=== PATIENT | female | born 1970 | race Two or more races ===

== ENCOUNTER 2018-10-12 10:41 | Inpatient (IN) | payer OTHER ==
[~2018-10-12] VITALS: Ht 157.5 cm; Wt 81.6 kg
[2018-10-12 10:42] VITALS: BP 147/121
[2018-10-12] MEDS ORDERED: Sodium Chloride 500ML 500 ML IV ONE (11:02)
--- NOTE | 2018-10-12 11:14 | Emergency Room Report ---
History of Present Illness General Chief Complaint: Abdominal Pain Source: Patient, EMS Present Illness HPI Patient presents in moderate discomfort left upper and mid abdominal pain Ongoing for the past 3 days Patient reports increased nausea denies any vomiting or diarrhea denies any pain like this before Denies any chest pain or shortness of breath Denies any fevers pain is 10 out of 10 with radiation as noted Denies any change with position or exertion Denies any focal weakness denies any trauma Allergies: Coded Allergies: No Known Allergies (Unverified , 10/12/18) Patient History Past Medical History: see triage record Pertinent Family History: none Reviewed Nursing Documentation: PMH: Agreed; PSxH: Agreed Nursing Documentation-PMH Past Medical History: No History, Except For Hx Cardiac Problems: Yes - CHF Hx Hypertension: Yes Review of Systems All Other Systems: negative except mentioned in HPI Physical Exam Vital Signs Date Time Temp Pulse Resp B/P (MAP) Pulse Ox O2 Delivery O2 Flow Rate FiO2 10/12/18 10:40 Room Air 10/12/18 10:42 98.6 96 16 147/121 100 Sp02 EP Interpretation: reviewed, normal General Appearance: moderate distress - In acute pain Head: normocephalic, atraumatic Eyes: bilateral eye PERRL, bilateral eye EOMI ENT: hearing grossly normal, normal pharynx, TMs + canals normal, uvula midline , other - Poor dentition Neck: full range of motion, supple, no meningismus, no bony tend Respiratory: lungs clear, normal breath sounds, no rhonchi, no respiratory distress, no retraction, no accessory muscle use Cardiovascular #1: normal peripheral pulses, regular rate, rhythm, no edema, no gallop, no JVD, no murmur Gastrointestinal: normal bowel sounds, soft, non-distended, no pulsatile mass, no rebound, other - Patient's abdomen remains soft however subjectively points to the left upper quadrant and mid abdominal area Genitourinary: no CVA tenderness Musculoskeletal: normal inspection Neurologic: oriented x3, responsive, radiation engineer III-XII nml as tested, motor strength/ tone normal, sensory intact Psychiatric: mood/affect normal Skin: normal color, no rash, warm/dry, palpation normal Lymphatic: normal inspection, no adenopathy Medical Decision Making Diagnostic Impression: Primary Impression: Colitis Additional Impressions: Abdominal pain Amphetamine abuse ER Course With the history exam and presentation, multiple differentials considered, including but not limited to appendicitis, gastritis, cholecystitis, diverticulitis Patient also appears somewhat agitated Did question regarding drug abuse and initially the patient denied any abuse Toxic screen does reveal amphetamine positive It does somewhat correlate with the patient's demeanor Given the continued pain however and the patient general discomfort CT imaging was also obtained which shows some evidence of colitis Patient initiated on IV antibiotics for that she has a poor outpatient disposition and requires further inpatient care, Labs Test 10/12/18 11:22 10/12/18 16:35 White Blood Count 6.9 K/UL (4.8-10.8) Red Blood Count 5.30 M/UL (4.20-5.40) Hemoglobin 15.0 G/DL (12.0-16.0) Hematocrit 48.0 % (37.0-47.0) Mean Corpuscular Volume 90 FL (80-99) Mean Corpuscular Hemoglobin 28.3 PG (27.0-31.0) Mean Corpuscular Hemoglobin Concent 31.3 G/DL (32.0-36.0) Red Cell Distribution Width 16.2 % (11.6-14.8) Platelet Count 237 K/UL (150-450) Mean Platelet Volume 7.9 FL (6.5-10.1) Neutrophils (%) (Auto) 56.6 % (45.0-75.0) Lymphocytes (%) (Auto) 27.6 % (20.0-45.0) Monocytes (%) (Auto) 13.3 % (1.0-10.0) Eosinophils (%) (Auto) 0.4 % (0.0-3.0) Basophils (%) (Auto) 2.1 % (0.0-2.0) Sodium Level 135 MMOL/L (136-145) Potassium Level 4.4 MMOL/L (3.5-5.1) Chloride Level 101 MMOL/L (98-107) Carbon Dioxide Level 24 MMOL/L (21-32) Anion Gap 10 mmol/L (5-15) Blood Urea Nitrogen 12 mg/dL (7-18) Creatinine 0.9 MG/DL (0.55-1.30) Estimat Glomerular Filtration Rate > 60 mL/min (>60) Glucose Level 143 MG/DL (74-106) Calcium Level 9.1 MG/DL (8.5-10.1) Total Bilirubin 2.3 MG/DL (0.2-1.0) Direct Bilirubin 1.2 MG/DL (0.0-0.3) Aspartate Amino Transf (AST/SGOT) 83 U/L (15-37) Alanine Aminotransferase (ALT/SGPT) 138 U/L (12-78) Alkaline Phosphatase 410 U/L (46-116) Total Creatine Kinase 156 U/L (26-308) Creatine Kinase MB 2.1 NG/ML (0.0-3.6) Creatine Kinase MB Relative Index 1.3 Troponin I 0.054 ng/mL (0.000-0.056) Total Protein 9.2 G/DL (6.4-8.2) Albumin 3.2 G/DL (3.4-5.0) Globulin 6.0 g/dL Albumin/Globulin Ratio 0.5 (1.0-2.7) Lipase 131 U/L (73-393) Urine Color Brown Urine Appearance Clear Urine pH 5 (4.5-8.0) Urine Specific [place] 1.020 (1.005-1.035) Urine Protein 4+ (NEGATIVE) Urine Glucose (UA) Negative (NEGATIVE) Urine Ketones 1+ (NEGATIVE) Urine Blood 1+ (NEGATIVE) Urine Nitrite Negative (NEGATIVE) Urine Bilirubin 1+ (NEGATIVE) Urine Ictotest Negative (NEGATIVE) Urine Urobilinogen 4 MG/DL (0.0-1.0) Urine Leukocyte Esterase 1+ (NEGATIVE) Urine RBC 0-2 /HPF (0 - 2) Urine WBC 5-10 /HPF (0 - 2) Urine Squamous Epithelial Cells Occasional /LPF Urine Bacteria Occasional /HPF (NONE) Urine Hyaline Casts 0-2 /LPF (NONE) Urine Fine Granular Casts 2-4 /LPF (NONE) Urine Opiates Screen Negative (NEGATIVE) Urine Barbiturates Screen Negative (NEGATIVE) Phencyclidine (PCP) Screen Negative (NEGATIVE) Urine Amphetamines Screen Positive (NEGATIVE) Urine Benzodiazepines Screen Negative (NEGATIVE) Urine Cocaine Screen Negative (NEGATIVE) Urine Marijuana (THC) Screen Negative (NEGATIVE) Rhythm Strip Diag. Results EP Interpretation: yes Rate: 90 Rhythm: NSR, no PVC's, no ectopy CT/MRI/US Diagnostic Results CT/MRI/US Diagnostic Results : Impression CT abdomen pelvisImpression: Limited assessment of the GI tract, due to lack of enteric contrast administration Possible wall thickening of ascending colon, inadequately demonstrated but could indicate colitis Anasarca, with diffuse edema of the subcutaneous, abdominal and pelvic fat, small amount of ascites Cardiomegaly Limited assessment of the solid organs, due to poor contrast bolus related to infiltration of the IV. Surgically absent gallbladder Incidental finding of degenerative lumbosacral spondylosis Last Vital Signs Date Time Temp Pulse Resp B/P (MAP) Pulse Ox O2 Delivery O2 Flow Rate FiO2 10/12/18 10:42 96 16 Room Air 10/12/18 10:42 98.6 147/121 100 Status: improved Disposition: ADMITTED INPATIENT Condition: Serious Desi Conroy DO Oct 12, 2018 11:14
[2018-10-12] MEDS ORDERED: Isovue-300 100ml vial INJ PRN (11:15)
[2018-10-12 11:31] LABS: BASOPHILS % (AUTO) 2.1 % (0.0-2.0); EOSINOPHILS % (AUTO) 0.4 % (0.0-3.0); LYMPHOCYTES % (AUTO) 27.6 % (20.0-45.0); MEAN CORPUSCULAR VOLUME 90 FL (80-99); MONOCYTES % (AUTO) 13.3 % (1.0-10.0); NEUTROPHILS % (AUTO) 56.6 % (45.0-75.0); PLATELET COUNT 237 K/UL (150-450); RED CELL DISTRIBUTION WIDTH 16.2 % (11.6-14.8); WHITE BLOOD COUNT 6.9 K/UL (4.8-10.8)
[2018-10-12 11:39] LABS: ANION GAP 10 mmol/L (5-15); BLOOD UREA NITROGEN 12 mg/dL (7-18); CALCIUM 9.1 MG/DL (8.5-10.1); CARBON DIOXIDE 24 MMOL/L (21-32); CHLORIDE 101 MMOL/L (98-107); CREATININE 0.9 MG/DL (0.55-1.30); POTASSIUM 4.4 MMOL/L (3.5-5.1); SODIUM 135 MMOL/L (136-145)
[2018-10-12 11:42] VITALS: BP 138/106
[2018-10-12 11:52] LABS: ALANINE AMINOTRANSFERASE 138 U/L (12-78); ALBUMIN 3.2 G/DL (3.4-5.0); ALBUMIN/GLOBULIN RATIO 0.5 (1.0-2.7); ALKALINE PHOSPHATASE 410 U/L (46-116); ASPARTATE AMINO TRANSFERASE 83 U/L (15-37); BILIRUBIN,TOTAL 2.3 MG/DL (0.2-1.0); CKMB 2.1 NG/ML (0.0-3.6); CREATINE KINASE 156 U/L (26-308)
[2018-10-12 11:54] LABS: BILIRUBIN,DIRECT 1.2 MG/DL (0.0-0.3)
[2018-10-12 12:42] VITALS: BP 147/97
--- NOTE | 2018-10-12 13:12 | Diagnostic Imaging Report ---
Clinical Indication: Left upper and mid abdominal pain Technique: No oral contrast utilized, per emergency room physician request IV administration nonionic contrast. IV infiltrated after only 30 mL injected. Venous phase spiral acquisition obtained through the abdomen and pelvis. Multiplanar reconstructions were generated. Total dose length product 1005.52 mGycm. CTDIvol(s) 19.51 mGy. Dose reduction achieved using automated exposure control Comparison: none Findings: Dilation of the GI tract is limited due to lack of enteric contrast administration. The appendix is normal. There may be wall thickening of the ascending colon, although this is inadequately demonstrated. No evidence of diverticulosis or diverticulitis. There is a small amount of free intraperitoneal fluid. No small bowel distention. The distal esophagus, stomach, duodenum are unremarkable. No free intraperitoneal gas. No loculated fluid collections. Suboptimal contrast bolus limits assessment of the solid organs. The liver is grossly unremarkable. The gallbladder is surgically absent. No biliary ductal dilatation. The pancreas, spleen, adrenals, kidneys are unremarkable. No retroperitoneal or mesenteric mass or adenopathy. No pelvic mass or adenopathy. The uterus and ovaries are unremarkable. The included lower chest demonstrates marked cardiomegaly. There is a small amount of pericardial fluid. The included lung bases are clear. There is diffuse anasarca, with edema of the subcutaneous, mesenteric, retroperitoneal fat. The bones are unremarkable sub for degenerative changes of the lumbosacral junction and slight alignment abnormality of L5 on S1 Impression: Limited assessment of the GI tract, due to lack of enteric contrast administration Possible wall thickening of ascending colon, inadequately demonstrated but could indicate colitis Anasarca, with diffuse edema of the subcutaneous, abdominal and pelvic fat, small amount of ascites Cardiomegaly Limited assessment of the solid organs, due to poor contrast bolus related to infiltration of the IV. Surgically absent gallbladder Incidental finding of degenerative lumbosacral spondylosis The CT scanner at [facility] is accredited by the [employer] and the scans are performed using protocols designed to limit radiation exposure to as low as reasonably achievable to attain images of sufficient resolution adequate for diagnostic evaluation.
[2018-10-12 14:42] VITALS: BP 144/102
[2018-10-12] MEDS ORDERED: Ketorolac 30mg Inj IV ONE (14:45)
[2018-10-12] MEDS ORDERED: LORazepam Inj 2mg/ml 1ml IV ONE (14:45)
[2018-10-12 16:47] LABS: APPEARANCE,URINE CLEAR; BILIRUBIN, URINE 1+ (NEGATIVE); COLOR,URINE BROWN; GLUCOSE, URINE (UA) NEGATIVE (NEGATIVE); KETONES,URINE 1+ (NEGATIVE); LEUKOCYTE ESTERASE ,URINE 1+ (NEGATIVE); NITRITE,URINE NEGATIVE (NEGATIVE); PH,URINE 5 (4.5-8.0); PROTEIN,URINE 4+ (NEGATIVE); UROBILINOGEN,URINE 4 MG/DL (0.0-1.0)
[2018-10-12 20:00] VITALS: BP 164/114
[2018-10-12 21:33] VITALS: BP 159/99
[2018-10-12] MEDS ORDERED: BUMEX0.5 MG ORAL (22:02)
[2018-10-12] MEDS ORDERED: ASPIR 8181 MG ORAL (23:13)
[2018-10-12] MEDS ORDERED: DOCUSATE SODIU100 M2 ORAL (23:13)
[2018-10-12] MEDS ORDERED: LISINOPRIL5 MG ORAL (23:13)
[2018-10-12] MEDS ORDERED: POTASSIUM 25 M25 ME1 PO (23:13)
[2018-10-12] MEDS ORDERED: COREG3.125 MG ORAL (23:13)
[2018-10-12] MEDS ORDERED: BUMEX1 MG ORAL (23:13)
[2018-10-12] MEDS ORDERED: VENTOLIN HFA18 GM INH (23:15)
[2018-10-12] MEDS ORDERED: MGO400 MG PO (23:15)
[2018-10-13] VITALS: BP 184/120
[2018-10-13 03:50] VITALS: BP 154/96
[2018-10-13] MEDS: HydrALAZINE 50mg tab ORAL SCH ×3 (06:11→20:53)
[2018-10-13 07:31] LABS: ANION GAP 6 mmol/L (5-15); BLOOD UREA NITROGEN 18 mg/dL (7-18); CALCIUM 8.4 MG/DL (8.5-10.1); CARBON DIOXIDE 26 MMOL/L (21-32); CHLORIDE 104 MMOL/L (98-107); POTASSIUM 3.7 MMOL/L (3.5-5.1); SODIUM 136 MMOL/L (136-145)
[2018-10-13 07:32] LABS: BASOPHILS % (AUTO) 1.8 % (0.0-2.0); EOSINOPHILS % (AUTO) 1.8 % (0.0-3.0); HEMATOCRIT 39.3 % (37.0-47.0); HEMOGLOBIN 12.8 G/DL (12.0-16.0); LYMPHOCYTES % (AUTO) 22.1 % (20.0-45.0); MEAN CORPUSCULAR VOLUME 89 FL (80-99); MONOCYTES % (AUTO) 18.1 % (1.0-10.0); NEUTROPHILS % (AUTO) 56.3 % (45.0-75.0); PLATELET COUNT 187 K/UL (150-450); RED CELL DISTRIBUTION WIDTH 15.6 % (11.6-14.8); WHITE BLOOD COUNT 5.2 K/UL (4.8-10.8)
[2018-10-13] MEDS: Heparin 5000 units/ml inj SUBQ SCH ×2 (08:48→20:54)
--- NOTE | 2018-10-13 08:50 | Diagnostic Imaging Report ---
Indication: Shortness of breath Technique: One view of the chest Comparison: none Findings: The heart is markedly enlarged. There is equivocal minimal interstitial congestion and equivocal slight blunting of left costophrenic sulcus.. Impression: Marked cardiomegaly Equivocal minimal residual congestion and possible small left pleural effusion This agrees with the preliminary interpretation provided overnight by [facility] teleradiology service.
[2018-10-13 09:00] VITALS: BP 149/88
[2018-10-13] MEDS ORDERED: Norco 5mg/325mg tab ORAL PRN (09:56)
[2018-10-13] MEDS: HYDROcodone/Acetamin 10/325 tab ORAL PRN (10:00)
[2018-10-13 12:00] VITALS: BP 116/82
[2018-10-13 13:07] LABS: ALANINE AMINOTRANSFERASE 149 U/L (12-78); ALBUMIN 2.5 G/DL (3.4-5.0); ALKALINE PHOSPHATASE 338 U/L (46-116); ASPARTATE AMINO TRANSFERASE 140 U/L (15-37); BILIRUBIN,DIRECT 0.9 MG/DL (0.0-0.3); BILIRUBIN,TOTAL 1.6 MG/DL (0.2-1.0)
[2018-10-13] MEDS: Levofloxacin 500mg tab ORAL SCH (14:37)
[2018-10-13 16:00] VITALS: BP 155/92
--- NOTE | 2018-10-13 17:45 | History and Physical Report ---
DATE OF ADMISSION: 10/12/2018 REASON FOR ADMISSION: Abdominal pain. HISTORY: This is a 48-year-old female who presents with abdominal pain and also some shortness of breath. The patient has nausea. Denies chest pain. The patient denies any fevers. The patient's care discussed and reviewed. The patient does have history of anasarca, history of CHF, on diuretics. PAST MEDICAL HISTORY: CHF, hypertension. MEDICATIONS: Reviewed. ALLERGIES: Reviewed. PHYSICAL EXAMINATION: GENERAL: A well-developed female with some noted edema. VITAL SIGNS: Blood pressure 156/105, pulse 97, temperature 96, respiratory rate 21, O2 saturation 97%. HEENT: Negative. NECK: Supple. LUNGS: With moderate breath sounds. Some crackles. CARDIAC: S1 and S2. Regular rate and rhythm. ABDOMEN: Slightly tender diffusely. EXTREMITIES: No cyanosis or clubbing. There is noted edema. LABORATORY DATA: Reviewed. CBC essentially normal. Chemistries essentially normal. Troponin 0.054. Albumin 3.2. IMPRESSION: 1. Evidence of anasarca. 2. Elevated liver enzymes, possible hepatic congestion. 3. Evidence of abdominal pain, possible colitis. 4. Mild protein-calorie malnutrition. RECOMMENDATIONS: Supportive care. Discontinue IV hydration. Empiric antibiotics to consider pending re-evaluation. Diuresis with noted anasarca. Blood pressure support. Pain control. GI evaluation. ID evaluation and we will discharge once improved and stable. Momo Thomas M.D. DR: Veronika JOB#: [id number] CC:
[2018-10-13 20:00] VITALS: BP 132/97
--- NOTE | 2018-10-13 21:30 | Consultation ---
DATE OF CONSULTATION: 10/13/2018 INFECTIOUS DISEASE CONSULT: This consult is for coverage of Dr. Salinas. CONSULTING PHYSICIAN: Dino Martinez M.D. PRIMARY ATTENDING: Momo Thomas M.D. REASON FOR CONSULT: Colitis. HISTORY OF PRESENT ILLNESS: The patient is a 48-year-old female admitted yesterday complaining of abdominal pain in the left side. The patient has these symptoms for 3 or 4 days associated with constipation. No fever. At the time of admission, had elevated bilirubin and transaminase level. PAST MEDICAL HISTORY: This patient has CHF and hypertension. ALLERGIES: No known drug allergies. MEDICATIONS: [place], heparin, hydralazine, Flagyl, Zofran, and clonidine. SOCIAL HISTORY: She lives in a trailer, single. Denies alcohol, drug abuse, or smoking. REVIEW OF SYSTEMS: No fever. No chills. No coughing. Abdominal pain as mentioned. The patient is drowsy and sedated and not a good historian. PHYSICAL EXAMINATION: VITAL SIGNS: Temperature 98.3, pulse 81, and blood pressure 116/82. GENERAL APPEARANCE: Slightly overweight, obese. HEAD AND NECK: [place] conjunctivae. HEART: S1-S2 regular. LUNGS: Clear. ABDOMEN: Soft. Mildly tender in the left side. EXTREMITIES: Have no edema. LABORATORY AND DIAGNOSTIC DATA: Sodium 136, potassium 3.7, chloride 104, bicarb 26, BUN 18, creatinine 1, and glucose is 117. Bilirubin is 1.6 coming down from 2.3, AST 148, ALT 149, and alkaline phosphatase is 338. Albumin is 2.5. Urine toxicology was positive for amphetamine. UA showed wbc of 5 to 10. The patient had a CT scan of the abdomen and pelvis, possible small thickening of ascending colon, maybe colitis, anasarca, cardiomegaly, surgically absent gallbladder, degenerative lumbosacral spondylosis. IMPRESSION: Diverticulitis of ascending colon, but the patient does not seem septic. Status post cholecystectomy. Has elevated transaminase and bilirubin. Has history of CHF, but was not on any medication before. Has hypertension and amphetamine abuse. RECOMMENDATION: We will continue with Flagyl. We will add Levaquin. Follow up hepatitis panel. At the end of my exam, I thank Dr. Thomas for involving me in the care of this patient. Dino Martinez M.D. DR: MCKENZIE JOB#: [id number] CC:
--- NOTE | 2018-10-13 23:21 | General Progress Note ---
Assessment/Plan Assessment/Plan GI CONSULT Assessment - Abnormal LFT, ? etiology - ? passive congestion - ? viral / hepatitis - ? Vascular / portal vein thrombosis - ? other - Ascending colon wall thickening, ? due to under-distention - (L) sided abdominal pain , ? etiology Recommendations - check abd U/S with doppler of vessels - check hepatitis serologies - follow LFT - check stool cultures - Check OB - check hepaitis serologies - follow LFT - po diet as tolerated Subjective Allergies: Coded Allergies: No Known Allergies (Unverified , 10/12/18) Objective Last 24 Hour Vital Signs Date Time Temp Pulse Resp B/P (MAP) Pulse Ox O2 Delivery O2 Flow Rate FiO2 10/13/18 21:34 Room Air 10/13/18 20:53 132/97 10/13/18 20:00 97.5 92 20 132/97 (109) 95 10/13/18 16:00 96.7 98 20 155/92 (113) 95 10/13/18 14:42 155/125 10/13/18 12:00 98.3 81 20 116/82 (93) 98 10/13/18 10:30 98.3 10/13/18 09:00 98.5 86 19 149/88 (108) 97 10/13/18 09:00 Room Air 10/13/18 09:00 Room Air 10/13/18 06:11 156/105 10/13/18 03:50 97 154/96 (115) 10/13/18 01:19 180/120 10/13/18 00:00 96.0 91 20 184/120 (141) 96 Intake and Output 10/12/18 10/13/18 19:00 07:00 Intake Total 480 ml Balance 480 ml Intake Oral 480 ml # Voids 1 1 Laboratory Tests 10/13/18 06:23: White Blood Count 5.2, Red Blood Count 4.40, Hemoglobin 12.8, Hematocrit 39.3, Mean Corpuscular Volume 89, Mean Corpuscular Hemoglobin 29.2, Mean Corpuscular Hemoglobin Concent 32.7, Red Cell Distribution Width 15.6H, Platelet Count 187, Mean Platelet Volume 8.2, Neutrophils (%) (Auto) 56.3, Lymphocytes (%) (Auto) 22.1, Monocytes (%) (Auto) 18.1H, Eosinophils (%) (Auto) 1.8, Basophils (%) ( Auto) 1.8, Sodium Level 136, Potassium Level 3.7, Chloride Level 104, Carbon Dioxide Level 26, Anion Gap 6, Blood Urea Nitrogen 18, Creatinine 1.0, Estimat Glomerular Filtration Rate 58.7, Glucose Level 117H, Calcium Level 8.4L, Total Bilirubin 1.6H, Direct Bilirubin 0.9H, Aspartate Amino Transf (AST/SGOT) 140H, Alanine Aminotransferase (ALT/SGPT) 149H, Alkaline Phosphatase 338H, Total Protein 7.4, Albumin 2.5L Height (Feet): 5 Height (Inches): 2.00 Weight (Pounds): 180 Lorenza Thompson MD Oct 13, 2018 23:21
[2018-10-13] MEDS: Bumetanide 2.5mg/10ml Inj IVP SCH (23:22)
[2018-10-14] VITALS: BP 139/95
[2018-10-14] MEDS: HYDROcodone/Acetamin 10/325 tab ORAL PRN ×3 (01:38→17:03)
[2018-10-14 04:00] VITALS: BP 120/78
[2018-10-14] MEDS: HydrALAZINE 50mg tab ORAL SCH ×2 (05:31→13:59)
[2018-10-14 07:40] LABS: ALANINE AMINOTRANSFERASE 124 U/L (12-78); ALBUMIN 2.4 G/DL (3.4-5.0); ALBUMIN/GLOBULIN RATIO 0.5 (1.0-2.7); ALKALINE PHOSPHATASE 325 U/L (46-116); ANION GAP 6 mmol/L (5-15); ASPARTATE AMINO TRANSFERASE 102 U/L (15-37); BILIRUBIN,TOTAL 1.2 MG/DL (0.2-1.0); BLOOD UREA NITROGEN 16 mg/dL (7-18); CALCIUM 8.3 MG/DL (8.5-10.1); CARBON DIOXIDE 28 MMOL/L (21-32); CHLORIDE 104 MMOL/L (98-107); CREATININE 0.9 MG/DL (0.55-1.30); POTASSIUM 3.6 MMOL/L (3.5-5.1); SODIUM 138 MMOL/L (136-145)
[2018-10-14 07:41] LABS: BILIRUBIN,DIRECT 0.7 MG/DL (0.0-0.3)
[2018-10-14 08:26] VITALS: BP 133/85
--- NOTE | 2018-10-14 09:29 | General Progress Note ---
Assessment/Plan Assessment/Plan IMPRESSION: 1. Evidence of anasarca. 2. Elevated liver enzymes, possible hepatic congestion. 3. Evidence of abdominal pain, possible colitis. 4. Mild protein-calorie malnutrition. PLAN care noted gi clearance alejoe advance diet impression, plan, and exam edited and reviewed in detail care discussed with RN Subjective Allergies: Coded Allergies: No Known Allergies (Unverified , 10/12/18) Subjective overall feels better Objective Last 24 Hour Vital Signs Date Time Temp Pulse Resp B/P (MAP) Pulse Ox O2 Delivery O2 Flow Rate FiO2 10/14/18 08:26 98.9 77 19 133/85 (101) 97 10/14/18 05:31 120/78 10/14/18 04:00 98.1 86 20 120/78 (92) 97 10/14/18 02:08 97.5 10/14/18 00:00 98.0 90 20 139/95 (110) 98 10/13/18 21:34 Room Air 10/13/18 20:53 132/97 10/13/18 20:00 97.5 92 20 132/97 (109) 95 10/13/18 16:00 96.7 98 20 155/92 (113) 95 10/13/18 14:42 155/125 10/13/18 12:00 98.3 81 20 116/82 (93) 98 Intake and Output 10/13/18 10/14/18 18:59 06:59 Intake Total 400 ml Balance 400 ml Intake Oral 200 ml IV Total 200 ml # Voids 1 Laboratory Tests 10/14/18 04:45: Sodium Level 138, Potassium Level 3.6, Chloride Level 104, Carbon Dioxide Level 28, Anion Gap 6, Blood Urea Nitrogen 16, Creatinine 0.9, Estimat Glomerular Filtration Rate > 60, Glucose Level 135H, Calcium Level 8.3L, Total Bilirubin 1.2H, Direct Bilirubin 0.7H, Aspartate Amino Transf (AST/SGOT) 102H, Alanine Aminotransferase (ALT/SGPT) 124H, Alkaline Phosphatase 325H, Total Protein 7.1, Albumin 2.4L, Globulin 4.7, Albumin/Globulin Ratio 0.5L, Hepatitis A IgM Antibody [Pending], Hepatitis B Surface Antigen [Pending], Hepatitis B Core IgM Antibody [Pending], Hepatitis C Antibody [Pending] Height (Feet): 5 Height (Inches): 2.00 Weight (Pounds): 180 Objective GENERAL: A well-developed female with some noted edema. HEENT: Negative. NECK: Supple. LUNGS: With moderate breath sounds. Some crackles. CARDIAC: S1 and S2. Regular rate and rhythm. ABDOMEN: Slightly tender diffusely. EXTREMITIES: No cyanosis or clubbing. There is noted edema. Momo Thomas MD Oct 14, 2018 09:28
[2018-10-14] MEDS: Bumetanide 2.5mg/10ml Inj IVP SCH (10:04)
[2018-10-14] MEDS: Levofloxacin 500mg tab ORAL SCH (10:04)
[2018-10-14] MEDS: Heparin 5000 units/ml inj SUBQ SCH (10:05)
--- NOTE | 2018-10-14 11:06 | Infectious Diseases Prog Note ---
Assessment/Plan Assessment/Plan antibiotics : levoquin, flagyl A 1. colitis 2. increased LFT 3. CHF 4. hypertension P 1. continue levoquin, flagyl 2. stool for c.diff 3. CMV PCR 4. will follow up cultures Subjective Constitutional: Denies: fever, chills Respiratory: Reports: dry cough; Denies: shortness of breath Gastrointestinal/Abdominal: Denies: nausea, vomiting, diarrhea Musculoskeletal: Reports: pain - in abdomen Allergies: Coded Allergies: No Known Allergies (Unverified , 10/12/18) Objective Vital Signs Last 24 Hour Vital Signs Date Time Temp Pulse Resp B/P (MAP) Pulse Ox O2 Delivery O2 Flow Rate FiO2 10/14/18 08:26 98.9 77 19 133/85 (101) 97 10/14/18 05:31 120/78 10/14/18 04:00 98.1 86 20 120/78 (92) 97 10/14/18 02:08 97.5 10/14/18 00:00 98.0 90 20 139/95 (110) 98 10/13/18 21:34 Room Air 10/13/18 20:53 132/97 10/13/18 20:00 97.5 92 20 132/97 (109) 95 10/13/18 16:00 96.7 98 20 155/92 (113) 95 10/13/18 14:42 155/125 10/13/18 12:00 98.3 81 20 116/82 (93) 98 Height (Feet): 5 Height (Inches): 2.00 Weight (Pounds): 180 Respiratory/Chest: lungs clear Cardiovascular: normal rate, regular rhythm, no gallop/murmur Abdomen: distended, tender - in left side Extremities: other - + edema Laboratory Tests Test 10/14/18 04:45 Sodium Level 138 MMOL/L (136-145) Potassium Level 3.6 MMOL/L (3.5-5.1) Chloride Level 104 MMOL/L (98-107) Carbon Dioxide Level 28 MMOL/L (21-32) Anion Gap 6 mmol/L (5-15) Blood Urea Nitrogen 16 mg/dL (7-18) Creatinine 0.9 MG/DL (0.55-1.30) Estimat Glomerular Filtration Rate > 60 mL/min (>60) Glucose Level 135 MG/DL (74-106) H Calcium Level 8.3 MG/DL (8.5-10.1) L Total Bilirubin 1.2 MG/DL (0.2-1.0) H Direct Bilirubin 0.7 MG/DL (0.0-0.3) H Aspartate Amino Transf (AST/SGOT) 102 U/L (15-37) H Alanine Aminotransferase (ALT/SGPT) 124 U/L (12-78) H Alkaline Phosphatase 325 U/L (46-116) H Total Protein 7.1 G/DL (6.4-8.2) Albumin 2.4 G/DL (3.4-5.0) L Globulin 4.7 g/dL Albumin/Globulin Ratio 0.5 (1.0-2.7) L Hepatitis A IgM Antibody Pending Hepatitis B Surface Antigen Pending Hepatitis B Core IgM Antibody Pending Hepatitis C Antibody Pending Current Medications Medications (Trade) Dose Ordered Sig/Joy Route PRN Reason Start Time Stop Time Status Last Admin Dose Admin Acetaminophen/ Hydrocodone Bitart ([place] 10/325) 1 tab Q4H PRN ORAL Severe Pain (Pain Scale 7-10) 10/13/18 10:00 10/20/18 09:59 10/14/18 10:11 Acetaminophen/ Hydrocodone Bitart ([place] 5/325) 1 tab Q4H PRN ORAL Moderate Pain (Pain Scale 4-6) 10/13/18 09:56 10/20/18 09:55 Bumetanide (Bumex) 1 mg Q12HR IVP 10/13/18 21:00 11/12/18 20:59 10/14/18 10:04 Clonidine HCl (Catapres Tab) 0.1 mg Q4H PRN ORAL SBP>150 10/12/18 19:00 11/11/18 18:59 10/13/18 01:19 Heparin Sodium (Porcine) (Heparin 5000 units/ml) 5,000 units EVERY 12 HOURS SUBQ 10/13/18 09:00 11/12/18 08:59 10/14/18 10:05 Hydralazine HCl (Apresoline) 50 mg Q8HR ORAL 10/13/18 06:00 11/12/18 05:59 10/14/18 05:31 Iopamidol (Isovue-300 100ml) 100 ml NOW PRN INJ Radiology Procedure 10/12/18 11:15 Levofloxacin (Levaquin) 500 mg DAILY ORAL 10/13/18 13:58 10/20/18 13:57 10/14/18 10:04 Metronidazole 100 ml @ 100 mls/hr Q8HR IVPB 10/12/18 22:00 10/19/18 21:59 10/14/18 05:31 Ondansetron HCl (Zofran) 4 mg Q6H PRN IVP Nausea & Vomiting 10/12/18 20:30 11/11/18 20:29 Kimo Salinas MD Oct 14, 2018 11:06
[2018-10-14 12:00] VITALS: BP 157/96
--- NOTE | 2018-10-14 13:47 | Diagnostic Imaging Report ---
Indication:Abdominal pain Technique: Grayscale and duplex Doppler imaging of the abdomen performed. Comparison: None Findings: The study is technically suboptimal. The left kidney and spleen in particular not visualized. The liver is grossly unremarkable. Gallbladder is absent. Pancreas and aorta are poorly seen. There is no obvious biliary ductal dilatation identified. Doppler evaluation of the main portal vein shows patency. There is trace ascites. No obvious hydronephrosis seen. Impression: No acute findings. Very limited study as discussed above
[2018-10-14 16:00] VITALS: BP 158/109
[2018-10-14 17:30] VITALS: BP 140/93
--- NOTE | 2018-10-14 20:41 | General Progress Note ---
Assessment/Plan Assessment/Plan Assessment - Abnormal LFT, ? etiology - ? passive congestion - ? viral / hepatitis - ? Vascular / portal vein thrombosis - ? other - Ascending colon wall thickening, ? due to under-distention - (L) sided abdominal pain , ? etiology - improved Recommendations - check abd U/S with doppler of vessels - negative - check hepatitis serologies - follow LFT - check stool cultures - Check OB - check hepaitis serologies - follow LFT - po diet as tolerated Subjective Allergies: Coded Allergies: No Known Allergies (Unverified , 10/12/18) Subjective Feels better less pain tolerating po U/S noted no PVT Objective Last 24 Hour Vital Signs Date Time Temp Pulse Resp B/P (MAP) Pulse Ox O2 Delivery O2 Flow Rate FiO2 10/14/18 17:33 97.1 10/14/18 17:30 92 140/93 (109) 10/14/18 16:59 158/109 10/14/18 16:00 97.1 96 19 158/109 (125) 10/14/18 13:59 157/96 10/14/18 12:00 98.8 78 19 157/96 (116) 95 10/14/18 09:00 Room Air 10/14/18 08:26 98.9 77 19 133/85 (101) 97 10/14/18 05:31 120/78 10/14/18 04:00 98.1 86 20 120/78 (92) 97 10/14/18 00:00 98.0 90 20 139/95 (110) 98 10/13/18 21:34 Room Air 10/13/18 20:53 132/97 Intake and Output 10/13/18 10/14/18 19:00 07:00 Intake Total 400 ml Balance 400 ml Intake Oral 200 ml IV Total 200 ml # Voids 1 Laboratory Tests 10/14/18 04:45: Sodium Level 138, Potassium Level 3.6, Chloride Level 104, Carbon Dioxide Level 28, Anion Gap 6, Blood Urea Nitrogen 16, Creatinine 0.9, Estimat Glomerular Filtration Rate > 60, Glucose Level 135H, Calcium Level 8.3L, Total Bilirubin 1.2H, Direct Bilirubin 0.7H, Aspartate Amino Transf (AST/SGOT) 102H, Alanine Aminotransferase (ALT/SGPT) 124H, Alkaline Phosphatase 325H, Total Protein 7.1, Albumin 2.4L, Globulin 4.7, Albumin/Globulin Ratio 0.5L, Hepatitis A IgM Antibody [Pending], Hepatitis B Surface Antigen [Pending], Hepatitis B Core IgM Antibody [Pending], Hepatitis C Antibody [Pending] Height (Feet): 5 Height (Inches): 2.00 Weight (Pounds): 180 Objective WDWN NCAT supple CTA RR abd distended, improved L sided abd TTP, (+) anasarca (+) edema Lorenza Thompson MD Oct 14, 2018 20:40
--- NOTE | 2018-10-14 23:45 | Consultation ---
DATE OF CONSULTATION: 10/13/2018 GASTROLOGY CONSULTATION CONSULTING PHYSICIAN: Lorenza Thompson M.D. REFERRING PHYSICIAN: Momo Thomas M.D. CHIEF COMPLAINT: I was asked to see this patient by Dr. Momo Thomas for evaluation of abdominal pain. HISTORY OF PRESENT ILLNESS: The patient is a 48-year-old white woman, who comes into the hospital because of a two-day history of left-sided abdominal pain. She has had some nausea, but no vomiting. She had some loose stools, but only yesterday. She has not seen a recent physician, although she was discharged from [facility] few months ago when she was apparently very edematous. She has not had any history of liver disease and has not had any recent antibiotics. The CT scan she underwent in the emergency room showed some ill-defined right-sided colonic thickening versus nondistention. No liver abnormalities were identified. She was noted to have anasarca. PAST MEDICAL HISTORY: History of hypertension and congestive heart failure. PAST SURGICAL HISTORY: Status cholecystectomy. ALLERGIES: None. FAMILY HISTORY: Noncontributory. SOCIAL HISTORY: The patient does not smoke or drink alcohol. She has, however, used amphetamines before. MEDICATIONS: The lists are not clear, but the patient does recall being on Bumex. PHYSICAL EXAMINATION: GENERAL: A well-developed and well-nourished white woman seen in her room. HEENT: Normocephalic and atraumatic. Sclerae were minimally icteric. Oropharynx is clear. NECK: Supple. CHEST: Clear to auscultation. CARDIOVASCULAR: Revealed regular rate. ABDOMEN: Soft and obese with anasarca laterally and also striae markings in the anterior abdominal wall. There was some mild left-sided abdominal tenderness without guarding or rebound. No masses. EXTREMITIES: Revealed trace edema. LABORATORY AND IMAGING DATA: Laboratory data were noted. CT scan was noted. ASSESSMENT: This patient presents with left-sided abdominal pain, which is not likely related to the CT findings in the right colon. In fact, the CT findings may be a radiological phenomenon for the nondistention of the colon and not a true pathology. The patient had one episode of loose stools and therefore will be worthwhile to check her stool cultures and the Clostridium difficile. I am, however, more concerned about the liver since liver tests are markedly abnormal. This may be explained by congestive liver disease. Alternatively, if there is evidence of portal vein thrombosis, the liver tests can be abnormal and pain can extend into abdomen. For that reason, I would order abdominal ultrasound with Doppler interrogation of the hepatic vessels. I will also check the underlying biomarkers. RECOMMENDATIONS: Per above discussion and per orders written in the chart. Thank you for asking me to participate in the care of this patient. Lorenza Thompson M.D. DR: STAR JOB#: [id number] CC:
--- NOTE | 2018-10-16 13:23 | Discharge Summary ---
Discharge Summary Discharge Summary _ DATE OF ADMISSION: 10/12/2018 DATE OF DISCHARGE: 10/14/2018 DISCHARGED BY: Dr. Thomas REASON FOR ADMISSION: 48 years old female with past medical history of hypertension, congestive heart failure, presented to emergency department complaining of abdominal pain and shortness of breath. Patient also reported nausea. No vomiting. She denied chest pain. She denied fevers. Upon evaluation vital signs were stable. Laboratory workup revealed stable CBC. Stable electrolytes and renal parameters. Elevated liver enzymes noted: total bilirubin 2.3 ,direct bilirubin 1.2 . AST 83, ALT 138 . troponin normal- 0.054. Albumin 3.2 . Lipase 131. Urinalysis +4 protein , + 1 leukocyte esterase ,pyuria, but no bacteria. Urine toxicology screen positive for amphetamine. CT of abdomen and pelvis revealed possible wall thickening of ascending colon , possibly indicative of colitis. Anasarca with diffuse edema of the subcutaneous, abdominal and pelvic fat, small amount of ascites. Cardiomegaly. Surgically absent gallbladder. Incidental finding of degenerative lumbosacral spondylosis. Patient admitted with diagnoses of anasarca, elevated liver enzymes , possible hepatic congestion, abdominal pain ,possible colitis, mild protein calorie malnutrition. CONSULTANTS: ID specialist Dr. Salinas GI specialist Dr. Lopez [facility] HOSPITAL COURSE: Patient admitted to medical surgical floor. Patient started on empiric antibiotics. ID and GI specialist closely followed. Patient also started on diuretic with close monitoring of volumes , electrolytes and renal parameters. Chest x-ray revealed marked cardiomegaly. Supplemental oxygen was on board as needed and titrate to keep pulse oximetry above 92%. Prior to discharge pulse oximetry stabel on room air. GI specialist closely follow. LFT were closely monitored . LFT continue to be elevated. Bilirubin trending down. Hepatitis panel was negative. Abdominal ultrasound with Doppler revealed no acute findings. Per GI , abnormal LFT can have multiple etiologies: in this case probably passive congestion l since vital hepatitis was ruled out by negative hepatitis serology along with portal vein thrombosis by negative abdominal ultrasound. Antibiotics provided as per ID recommendations for possible colitis. Stool for C. difficile was ordered along with the cytomegalovirus by PCR. Patient did not provide stool sample. According to GI specialist , ascending colon wall thickening was probably due to underdistention. Pain management was addressed. Antiemetic provided as needed. Bowel regimen instituted . Diet was slowly advanced , and patient was able to tolerate diet. DVT and GI prophylaxis provided. Blood pressure was managed with hydralazine and clonidine as needed. Patient was counseled on abstinence from street drugs. Patient clinically improved was able to tolerate diet . Pain resolved. Patient was stable for discharge home FINAL DIAGNOSES: Anasarca Elevated liver enzymes, possible hepatic congestion Possible colitis Hypertension History of CHF Mild protein calorie malnutrition Amphetamine abuse DISCHARGE MEDICATIONS: See Medication Reconciliation list. DISCHARGE INSTRUCTIONS: Patient was discharged home . Follow up with primary care provider in one week to recheck LFT. I have been assigned to dictate discharge summary for this account. I was not involved in the patient's management. Julissa Fabian NP Oct 16, 2018 13:22
== END 2018-10-14 16:30 | disposition home or self-care (01) ==
LOC: EDBD 10:41 → EMR 11:37 → 3E 15:15 → EDBEDREQ 16:47
DX: K76.1 Chronic passive congestion of liver (principal); I11.0 Hypertensive heart disease with heart failure; I50.9 Heart failure, unspecified; E44.1 Mild protein-calorie malnutrition; K52.9 Noninfective gastroenteritis and colitis, unspecified; K57.92 Diverticulitis of intestine, part unspecified, without perforation or abscess without bleeding; Z90.49 Acquired absence of other specified parts of digestive tract; F15.10 Other stimulant abuse, uncomplicated; R60.1 Generalized edema
CPT/HCPCS: 36415; 71045; 74177; 76705; 80048; 80053; 80076; 80307; 81003; 82248; 82550; 82553; 83690; 84484; 85025; 86705; 86709; 86803; 87340; 93005; 96361; 96365; 96368; 96375; 99285; J2405

== ENCOUNTER 2018-12-01 18:47 | Emergency (ER) | payer OTHER ==
[~2018-12-01] VITALS: Ht 152.4 cm; Wt 102.1 kg
[~2018-12-01 18:47] MED LIST: ASPIR 8181 MG ORAL; BUMEX0.5 MG ORAL; BUMEX1 MG ORAL; COREG3.125 MG ORAL; DOCUSATE SODIU100 M2 ORAL; LISINOPRIL5 MG ORAL; MGO400 MG PO; POTASSIUM 25 M25 ME1 PO; VENTOLIN HFA18 GM INH
[2018-12-01] MEDS ORDERED: Albuterol ud Inhalation HHN ONE (19:15)
[2018-12-01] MEDS ORDERED: Ipratropium 0.02% Inh Soln 2.5ml UD HHN ONE (19:15)
[2018-12-01 19:51] LABS: EOSINOPHILS % (AUTO) 0.7 % (0.0-3.0); HEMATOCRIT 41.3 % (37.0-47.0); LYMPHOCYTES % (AUTO) 21.6 % (20.0-45.0); MEAN CORPUSCULAR VOLUME 90 FL (80-99); NEUTROPHILS % (AUTO) 61.7 % (45.0-75.0); PLATELET COUNT 196 K/UL (150-450); RED BLOOD COUNT 4.57 M/UL (4.20-5.40); RED CELL DISTRIBUTION WIDTH 15.9 % (11.6-14.8); WHITE BLOOD COUNT 5.6 K/UL (4.8-10.8)
[2018-12-01 20:10] LABS: ANION GAP 4 mmol/L (5-15); BLOOD UREA NITROGEN 12 mg/dL (7-18); CALCIUM 8.7 MG/DL (8.5-10.1); CARBON DIOXIDE 30 MMOL/L (21-32); CHLORIDE 103 MMOL/L (98-107); CREATININE 0.9 MG/DL (0.55-1.30); POTASSIUM 4.4 MMOL/L (3.5-5.1); SODIUM 137 MMOL/L (136-145)
[2018-12-01 20:24] LABS: ALANINE AMINOTRANSFERASE 41 U/L (12-78); ALBUMIN 2.6 G/DL (3.4-5.0); ALBUMIN/GLOBULIN RATIO 0.5 (1.0-2.7); ALKALINE PHOSPHATASE 274 U/L (46-116); ASPARTATE AMINO TRANSFERASE 58 U/L (15-37); BILIRUBIN,TOTAL 1.7 MG/DL (0.2-1.0); CREATINE KINASE 276 U/L (26-308)
[2018-12-01 20:26] LABS: BILIRUBIN,DIRECT 0.9 MG/DL (0.0-0.3)
[2018-12-01] MEDS ORDERED: Bumetanide 2.5mg/10ml Inj IVP ONE (21:00)
[2018-12-01] MEDS ORDERED: Morphine Sulfate 4mg/ml Inj (IV/IM USE ONLY) IVP ONE (21:00)
[2018-12-01 22:53] VITALS: BP 147/100
--- NOTE | 2018-12-01 22:53 | Emergency Room Report ---
History of Present Illness General Chief Complaint: Dyspnea/Respdistress Source: Patient Present Illness HPI 48-year-old female presents ED for evaluation. Complaining of shortness of breath and leg swelling 1 week. History of CHF. States that she takes Bumex but states she is compliant with her medications. Denies fevers or chills. Denies cough. Denies chest pain. No other aggravating relieving factors. Denies any other associated symptoms Allergies: Coded Allergies: No Known Allergies (Unverified , 10/12/18) Patient History Past Medical History: HTN, CHF Pertinent Family History: none Social History: Denies: smoking, alcohol use, drug use Last Menstrual Period: n/a Now: No Immunizations: UTD Reviewed Nursing Documentation: PMH: Agreed; PSxH: Agreed Nursing Documentation-PMH Past Medical History: No History, Except For Hx Cardiac Problems: Yes - CHF, HTN Hx Hypertension: Yes Hx Cancer: No Hx Gastrointestinal Problems: Yes - Abdominal Pain Hx Neurological Problems: No Review of Systems All Other Systems: negative except mentioned in HPI Physical Exam Vital Signs Date Time Temp Pulse Resp B/P (MAP) Pulse Ox O2 Delivery O2 Flow Rate FiO2 12/01/18 18:57 98.8 99 22 147/100 92 Room Air 12/01/18 19:13 2.0 28 Sp02 EP Interpretation: reviewed, normal General Appearance: no apparent distress, alert, GCS 15, non-toxic Head: normocephalic, atraumatic Eyes: bilateral eye normal inspection, bilateral eye PERRL ENT: hearing grossly normal, normal pharynx, no angioedema, normal voice Neck: full range of motion, supple/symm/no masses Respiratory: chest non-tender, lungs clear, normal breath sounds, speaking full sentences Cardiovascular #1: regular rate, rhythm, no edema Cardiovascular #2: 2+ carotid (R), 2+ carotid (L), 2+ radial (R), 2+ radial (L) , 2+ dorsalis pedis (R), 2+ dorsalis pedis (L) Gastrointestinal: normal bowel sounds, non tender, soft, non-distended, no guarding, no rebound Rectal: deferred Genitourinary: normal inspection, no CVA tenderness Musculoskeletal: back normal, gait/station normal, normal range of motion, swelling Neurologic: alert, oriented x3, responsive, motor strength/tone normal, sensory intact, speech normal Psychiatric: judgement/insight normal, memory normal, mood/affect normal, no suicidal/homicidal ideation Reflexes: 3+ bicep (R), 3+ bicep (L), 3+ tricep (R), 3+ tricep (L), 3+ knee (R) , 3+ knee (L) Skin: normal color, no rash, warm/dry, well hydrated Lymphatic: no adenopathy Medical Decision Making Diagnostic Impression: Primary Impression: CHF exacerbation Qualified Codes: I50.9 - Heart failure, unspecified Additional Impression: Transaminitis ER Course Hospital Course 48-year-old female presents ED complaining of shortness of breath, leg swelling x1 week Differential diagnoses include: CO/unstable angina, contusion, muscle strain, PTX, rib fracture Clinical course Patient placed on stretcher. on cardiac rn. After initial history and physical I ordered labs, EKG, chest x-ray, nebs labs reviewed- no leukocytosis, hemoglobin/hematocrit stable, electrolytes ok, troponins negative 0.066, BNP greater than 2800 EKG - NSR, no acute ischemic changes intepreted by me Chest x-ray- pulmonary congestion Minimally elevated troponin. Patient denies chest pain. Given aspirin. Patient given IV Bumex. Patient has some transaminitis. Likely secondary to alcohol use Because of insurance patient will be transferred I. I feel this is a highly complex case requiring extensive working including EKG/Rhythm strip, Xray/CT/US, Blood/urine lab work, repeat exams while in ED, and administration of strong opiates/narcotics for pain control, admission to hospital or close patient follow up. Diagnosis - CHF exacerbation, transaminitis Transferred in serious condition Labs Test 12/01/18 19:46 White Blood Count 5.6 K/UL (4.8-10.8) Red Blood Count 4.57 M/UL (4.20-5.40) Hemoglobin 13.0 G/DL (12.0-16.0) Hematocrit 41.3 % (37.0-47.0) Mean Corpuscular Volume 90 FL (80-99) Mean Corpuscular Hemoglobin 28.5 PG (27.0-31.0) Mean Corpuscular Hemoglobin Concent 31.6 G/DL (32.0-36.0) Red Cell Distribution Width 15.9 % (11.6-14.8) Platelet Count 196 K/UL (150-450) Mean Platelet Volume 7.8 FL (6.5-10.1) Neutrophils (%) (Auto) 61.7 % (45.0-75.0) Lymphocytes (%) (Auto) 21.6 % (20.0-45.0) Monocytes (%) (Auto) 14.0 % (1.0-10.0) Eosinophils (%) (Auto) 0.7 % (0.0-3.0) Basophils (%) (Auto) 2.0 % (0.0-2.0) Sodium Level 137 MMOL/L (136-145) Potassium Level 4.4 MMOL/L (3.5-5.1) Chloride Level 103 MMOL/L (98-107) Carbon Dioxide Level 30 MMOL/L (21-32) Anion Gap 4 mmol/L (5-15) Blood Urea Nitrogen 12 mg/dL (7-18) Creatinine 0.9 MG/DL (0.55-1.30) Estimat Glomerular Filtration Rate > 60 mL/min (>60) Glucose Level 110 MG/DL (74-106) Calcium Level 8.7 MG/DL (8.5-10.1) Total Bilirubin 1.7 MG/DL (0.2-1.0) Direct Bilirubin 0.9 MG/DL (0.0-0.3) Aspartate Amino Transf (AST/SGOT) 58 U/L (15-37) Alanine Aminotransferase (ALT/SGPT) 41 U/L (12-78) Alkaline Phosphatase 274 U/L (46-116) Total Creatine Kinase 276 U/L (26-308) Creatine Kinase MB 4.0 NG/ML (0.0-3.6) Creatine Kinase MB Relative Index 1.4 Troponin I 0.066 ng/mL (0.000-0.056) Pro-B-Type Natriuretic Peptide 2841 pg/mL (0-125) Total Protein 7.9 G/DL (6.4-8.2) Albumin 2.6 G/DL (3.4-5.0) Globulin 5.3 g/dL Albumin/Globulin Ratio 0.5 (1.0-2.7) EKG Diagnostic Results Rate: normal Rhythm: NSR ST Segments: no acute changes ASA given to the pt in ED: No Rhythm Strip Diag. Results EP Interpretation: yes Rhythm: NSR, no PVC's, no ectopy Chest X-Ray Diagnostic Results Chest X-Ray Diagnostic Results : Chest X-Ray Ordered: Yes # of Views/Limited/Complete: 1 View Indication: Shortness of Breath EP Interpretation: Yes Interpretation: no consolidation, no pneumothorax, other - cardiomegaly. small efusion Impression: Other - chf Electronically Signed by: Electronically signed by Jacques John MD Last Vital Signs Date Time Temp Pulse Resp B/P (MAP) Pulse Ox O2 Delivery O2 Flow Rate FiO2 12/01/18 19:28 103 24 100 Nasal Cannula 2.0 28 12/01/18 18:57 98.8 147/100 Status: improved Disposition: [facility]FER [facility] Condition: Serious Referrals: MELANIE BRAVO,REFERRING (PCP) Jacques John MD Dec 01, 2018 22:53
[2018-12-02 01:03] VITALS: BP 91/63
[2018-12-02 01:09] VITALS: BP 91/63
--- NOTE | 2018-12-02 10:20 | Diagnostic Imaging Report ---
Indication: Shortness of breath Technique: One view of the chest Comparison: 10/13/2018 Findings: The heart is enlarged. Body habitus limits evaluation. Lungs and pleural spaces appear clear. No significant change Impression: Cardiomegaly. No definite acute process
== END 2018-12-02 01:10 | disposition short-term general hospital (02) ==
LOC: EMR 19:31
DX: I11.0 Hypertensive heart disease with heart failure (principal); I50.9 Heart failure, unspecified; R74.0 Nonspecific elevation of levels of transaminase and lactic acid dehydrogenase [LDH]
CPT/HCPCS: 36415; 71045; 80053; 82248; 82550; 82553; 83880; 84484; 85025; 93005; 94640; 94664; 96374; 96375; 99285; J2270